=== PATIENT | female | born 1960 | race African-American/Black ===

== ENCOUNTER 2016-10-03 21:22 | Emergency (ER) | payer OTHER ==
[2016-10-03 21:49] VITALS: BP 144/85
--- NOTE | 2016-10-03 22:00 | ED Physician Documentation ---
Flank Pain - HPI Stated Complaint: left side/back/flank pain Chief Complaint: Flank Pain Additional Information: started over 2 weeks ago. left flank left mid back sharp pain. worse with movement or lying on that side. reproducible with minimal palpation, reproducible when you lightly move the subcut tissue. She is fluffy and it doesn 't require deep palp to reproduce the pain. She does have a rash in the mid lumbar region, that is somewhat vesicular, but she states that rash has been there a long time. she states this pain tonight has been present longer than 2 weeks, and she notices it more at night when tring to sleep. Denies trauma, she did recently discover gallstones, and her dr told her it was a little infected, and she has appt with surgeon about GB surgery on the . she is scheduled to see her PCP tomorrow for this complaint. Onset: days ago Duration: constant Timing: still present Context: denies: out of country travel, bad food, recent trauma Severity: mild Quality: pain, sharp, stabbing. denies: aching, dull, burning, cramping Associated Symptoms: none Exacerbated by: supine, movements Relieved by: nothing Further Comments: no - ROS CONST: no problems GI/: none CVS/RESP: none EYES/ENT: none MS/SKIN/LYMPH: none, other (she has [facility]) NEURO/PSYCH: none - SOCIAL HX Smoking History: non-smoker Alcohol Use: none Drug Use: none - FAMILY HX Family History: none, kidney stones - PAST HX Past History: gall stones. denies: kidney stones, kidney infection Ischemic Bowel Risk Factors: none Other History: none Surgeries/Procedures: none Immunizations: UTD Medications: see nurse note Allergies: see nurses note - VITAL SIGNS Vital Signs: Vital Signs Temp Pulse Resp BP Pulse Ox 98.3 F 89 18 144/85 97 10/03/16 21:22 10/03/16 21:22 10/03/16 21:22 10/03/16 21:22 10/03/16 21:22 - REVIEWED ASSESSMENTS Nursing Assessment Reviewed: Yes Vitals Reviewed: Yes Abdominal Pain Physical Exam - Physical Exam General Appearance: no acute distress, alert EENT: ENT inspection normal, no signs of dehydration NECK: normal inspection RESPIRATORY: no resp distress CVS: reg rate & rhythm ABDOMEN: soft, no distension, non-tender BACK: other (flank "pain" very superficial, with palp and movement of the superficial subcut adipose tissue,) SKIN: warm/dry, normal color EXTREMITIES: non-tender NEURO: oriented X3 Vital Signs: Vital Signs Temp Pulse Resp BP Pulse Ox 98.3 F 89 18 144/85 97 10/03/16 21:22 10/03/16 21:22 10/03/16 21:22 10/03/16 21:22 10/03/16 21:22 Discharge Clincal Impression: Biliary colic Home Medications: Ambulatory Orders Hydrochlorothiazide [Hydrodiuril] 25 mg PO D 06/29/12 Ranitidine HCl [Zantac] 150 mg PO BID 06/29/12 Condition: Good Disposition: 01 HOME, SELF-CARE Decision to Admit: NO Date of Decison to Admit: 10/03/16 Decision Time: 22:06
[2016-10-04 05:42] LABS: APPEARANCE,URINE CLEAR (CLEAR); COLOR,URINE YELLOW (YELLOW); OCCULT BLOOD,URINE TRACE-LYSED (NEGATIVE); PH URINE 5.5 (5.0 - 8.0); UROBILINOGEN URINE 0.2 Eu (0.2-1.0)
== END 2016-10-03 22:04 | disposition home or self-care (01) ==
LOC: ED 21:22
DX: K80.50 Calculus of bile duct without cholangitis or cholecystitis without obstruction (principal)
CPT/HCPCS: 81002; 99283

== ENCOUNTER 2017-04-03 21:46 | Emergency (ER) | payer OTHER ==
--- NOTE | 2017-04-03 22:08 | ED Physician Documentation ---
General Adult - HISTORIAN Historian: patient (56 year old female patient presents with complaint of left hip pain, states she saw her PCP on 02/28 and started Meloxicam, states pain has been worse. No OTC medications today. ) - HPI Chief Complaint: General Adult Further Comments: yes (56 year old female patient presents with left hip pain radiating down leg. States she saw her PCP on 02/28, started Meloxicam; reports no improvement, states pain is worse.) - ROS CONST: no problems EYES/ENT: none CVS/RESP: none GI/: none MS/SKIN/LYMPH: joint pain (left hip and low back) - PAST HX Past History: hypertension, other (GERD) Allergies/Adverse Reactions: Allergies Allergy/AdvReac Type Severity Reaction Status Date / Time sulfamethoxazole Allergy Severe Hives Verified 04/03/17 22:04 [From Bactrim] trimethoprim [From Bactrim] Allergy Severe Hives Verified 04/03/17 22:04 Home Medications: Ambulatory Orders Medication Instructions Recorded Hydrochlorothiazide [Hydrodiuril] 25 mg PO D 06/29/12 Ranitidine HCl [Zantac] 150 mg PO BID 06/29/12 Lisinopril [Lisinopril] 40 mg PO D 04/03/17 - SOCIAL HX Smoking History: cigarettes - FAMILY HX Family History: No - VITAL SIGNS Vital Signs: Vital Signs Temp Pulse Resp BP Pulse Ox 144/85 10/03/16 22:08 - REVIEWED ASSESSMENTS Nursing Assessment Reviewed: Yes Vitals Reviewed: Yes ED Results Lab/Radiology - Orders Orders: ED Orders Category Date Time Status Baclofen [Lioresal] Med 04/03/17 22:05 Once 10 mg PO NOW ONE HYDROcodone /APAP 5/325 [[place] 5/325] Med 04/03/17 22:05 Once 2 each PO NOW ONE Ketorolac Tromethamine [Toradol] Med 04/03/17 22:04 Once 60 mg IM NOW ONE General Adult Physical Exam - PHYSICAL EXAM GENERAL APPEARANCE: mild distress EENT: eye inspection normal, MADELYN RESPIRATORY: no resp distress, chest non-tender, breath sounds normal CVS: reg rate & rhythm, heart sounds normal ABDOMEN: soft, other (morbid obesity) BACK: normal inspection, other (c/o left hip pain, radiating down outside of leg ; left buttock with tenderness to palpation; no vertebral) SKIN: normal color, warm/dry, NR, INT, PAL, DR EXTREMITIES: non-tender, normal range of motion NEURO: oriented X3, CN's nml as tested, motor nml, sensation nml, mood/affect nml Discharge Clincal Impression: Sciatica of left side Referrals: Primary Doctor,No [Primary Care Provider] - 2 Days Additional Instructions: 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 Stop the meloxicam while you are on the toradol. Rest Elevation You may use Tylenol every 4hour as needed for pain. Limit your dose to less than 4 G per day. Do not take ibuprofen, aleve, naproxen or any other NSAID while you are on toradol. You may want to try massage, over the counter lidocaine patches, biofreeze, kait baldwin or aspercream . Condition: Stable Disposition: 01 HOME, SELF-CARE Decision to Admit: NO Decision Time: 22:06
[2017-04-03] MEDS: KETOROLAC TROMETHAMINE 60 MG/2 ML VIAL IM ONE (22:15)
[2017-04-03] MEDS: BACLOFEN 10 MG TABLET PO ONE (22:29)
[2017-04-03] MEDS: HYDROcodone /APAP 5/325 1 EACH TABLET PO ONE (22:29)
[2017-04-03 22:44] VITALS: BP 125/73
== END 2017-04-03 22:32 | disposition home or self-care (01) ==
LOC: ED 21:46
DX: M54.32 Sciatica, left side (principal)
CPT/HCPCS: 96372; 99283; J1885

== ENCOUNTER 2018-01-04 23:09 | Emergency (ER) | payer OTHER ==
--- NOTE | 2018-01-04 23:28 | ED Physician Documentation ---
General Adult - HISTORIAN Historian: patient - HPI Stated Complaint: sore throat Chief Complaint: General Adult Onset: days ago (1) Timing: still present Severity: moderate Further Comments: yes (Pt is a 57 yo female with a sore throat that began 2 days ago. Pt has had a temp of 99 at home. No nausea. No cough.) - ROS CONST: other (malaise) EYES/ENT: sore throat CVS/RESP: none GI/: none MS/SKIN/LYMPH: none - PAST HX Past History: other (GERD, HTN) Surgeries/Procedures: cholecystectomy Allergies/Adverse Reactions: Allergies Allergy/AdvReac Type Severity Reaction Status Date / Time sulfamethoxazole Allergy Severe Hives Verified 01/04/18 23:27 [From Bactrim] trimethoprim [From Bactrim] Allergy Severe Hives Verified 01/04/18 23:27 Home Medications: Ambulatory Orders Medication Instructions Recorded Hydrochlorothiazide [Hydrodiuril] 25 mg PO D 06/29/12 Ranitidine HCl [Zantac] 150 mg PO BID 06/29/12 Lisinopril 40 mg PO D 04/03/17 Cephalexin [Keflex] 500 mg PO TID #30 capsule 01/04/18 - SOCIAL HX Smoking History: non-smoker - FAMILY HX Family History: No - VITAL SIGNS Vital Signs: Vital Signs Temp Pulse Resp BP Pulse Ox 125/73 04/03/17 22:37 - REVIEWED ASSESSMENTS Nursing Assessment Reviewed: Yes Vitals Reviewed: Yes Progress - Progress Progress: Rx Keflex 500 mg po tid x 10 days, 1st dose in ER. General Adult Physical Exam - PHYSICAL EXAM GENERAL APPEARANCE: mild distress EENT: pharyngeal erythema NECK: normal inspection, supple RESPIRATORY: no resp distress, chest non-tender, breath sounds normal CVS: reg rate & rhythm, heart sounds normal ABDOMEN: soft, no organomegaly, normal bowel sounds BACK: normal inspection, no CVA tenderness SKIN: warm/dry, normal color EXTREMITIES: non-tender, normal range of motion, no evidence of injury NEURO: oriented X3, motor nml, sensation nml Discharge Clincal Impression: Strep pharyngitis Prescriptions: Cephalexin [Keflex] 500 mg PO TID #30 capsule Referrals: Primary Doctor,No [REFERRING] - Condition: Stable Disposition: HOME, SELF-CARE Decision to Admit: NO Decision Time: 23:40
[2018-01-04] MEDS: CEPHALEXIN 250 MG CAPSULE PO ONE (23:34)
[2018-01-04 23:40] VITALS: BP 142/99
== END 2018-01-04 23:39 | disposition home or self-care (01) ==
LOC: ED 23:09
DX: J02.0 Streptococcal pharyngitis (principal)
CPT/HCPCS: 99282